=== PATIENT | male | born 1990 ===

== ENCOUNTER 2018-06-12 23:32 | Emergency (ER) | payer OTHER ==
[2018-06-12] MEDS ORDERED: Bacitracin 500 Units/gm Oint Foilpak UD ONE (23:45)
[2018-06-12 23:57] VITALS: RESP 16; O2SAT 99
[2018-06-13] MEDS ORDERED: Tdap Vaccine 0.5 ml Vial (10-64 yrs) IM ONE ×2 (00:04→00:09)
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
[2018-06-13] MEDS ORDERED: Bacitracin 500 Units/gm Oint Foilpak UD ONE ×3 (02:07→02:28)
[2018-06-13 02:36] VITALS: BP 126/70; PULSE 84; TEMP 98.6
== END 2018-06-13 02:36 | disposition home or self-care (01) ==
LOC: C.ER 23:32
DX: S61.214A Laceration without foreign body of right ring finger without damage to nail, initial encounter (principal); S50.311A Abrasion of right elbow, initial encounter; S90.511A Abrasion, right ankle, initial encounter; V13.4XXA Pedal cycle driver injured in collision with car, pick-up truck or van in traffic accident, initial encounter; Y92.410 Unspecified street and highway as the place of occurrence of the external cause; Z23 Encounter for immunization

== ENCOUNTER 2018-06-20 15:11 | Emergency (ER) | payer MEDICAID, OTHER ==
[2018-06-20 15:15] VITALS: BMI 26.6
[2018-06-20 15:17] VITALS: BP 143/83; PULSE 69; RESP 18; TEMP 98.2; O2SAT 99
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
[2018-06-20] MEDS ORDERED: Bacitracin 500 Units/gm Oint Foilpak UD ONE (15:47)
== END 2018-06-20 15:55 | disposition home or self-care (01) ==
LOC: C.ER 15:11
DX: Z48.00 Encounter for change or removal of nonsurgical wound dressing (principal)

== ENCOUNTER 2018-06-24 13:30 | Emergency (ER) | payer MEDICAID, OTHER ==
[2018-06-24 13:30] VITALS: BMI 26.6
[2018-06-24 13:40] VITALS: BP 137/90; PULSE 67; RESP 18; TEMP 97.7; O2SAT 99
[2018-06-24] MEDS ORDERED: Bacitracin 500 Units/gm Oint Foilpak UD TOP ONE (13:57)
[2018-06-24] MEDS ORDERED: Bacitracin 500 Units/gm Oint Foilpak UD ONE (14:00)
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
== END 2018-06-24 14:21 | disposition home or self-care (01) ==
LOC: C.ER 13:30
DX: Z48.00 Encounter for change or removal of nonsurgical wound dressing (principal)

== ENCOUNTER 2018-06-27 15:09 | Emergency (ER) | payer OTHER ==
[2018-06-27 15:33] VITALS: BMI 24.3
[2018-06-27 15:39] VITALS: BP 143/86; PULSE 79; RESP 18; TEMP 97.9; O2SAT 99
--- NOTE | 2018-06-27 15:56 | C.PDOC ---
History Of Present Illness 27 yo male come in for scheduled evaluation of Right 4th finger open wound after laceration was repaired herein ED 2 weeks ago. Pt still c/o mild pain over distal 4th phalanx that was since injury, but denies worsening of pain, fever, chills, wound discharge, deformity to injured finger, denies weakness, sensory or vascular deficist to injured finger. Ambulate to ED for evaluation, not in any apparent distress. Time Seen by Provider: 06/27/18 15:28 Chief Complaint (Nursing): Wound Check History Per: Patient Past Medical History Reviewed: Historical Data, Nursing Documentation, Vital Signs Vital Signs: Last Vital Signs Temp 97.9 F 06/27/18 15:37 Pulse 79 06/27/18 15:37 Resp 18 06/27/18 15:37 BP 143/86 06/27/18 15:37 Pulse Ox 99 06/27/18 16:01 - Medical History PMH: No Chronic Diseases Family History: States: Unknown Family Hx - Social History Hx Alcohol Use: Yes Hx Substance Use: Yes (marijuana) - Immunization History Hx Tetanus Toxoid Vaccination: Yes Hx Influenza Vaccination: No Hx Pneumococcal Vaccination: No Review Of Systems Except As Marked, All Systems Reviewed And Found Negative. Constitutional: Negative for: Fever, Chills Musculoskeletal: Positive for: Hand Pain Skin: Positive for: Lesions Neurological: Negative for: Weakness, Numbness Physical Exam - Physical Exam Appears: Well, Non-toxic, No Acute Distress Skin: Normal Color, Warm, No Rash Extremity: Normal ROM (Right 4th finger), Tenderness (mild over Right 4th distal phalanx, small open wound noted palmar aspect [id number] distal phalanx with scant yelelow base ( granulation tissue vs infection)), Capillary Refill ( lesst bowman 2sec to Right hand), No Deformity, Swelling (diffuse mild Right 4th distal pahalnx. No erythema, no proximal streaking.), Other Neurological/Psych: Oriented x3, Normal Speech, Normal Motor, Normal Sensation, Normal Reflexes ED Course And Treatment O2 Sat by Pulse Oximetry: 99 Progress Note: Right hand: 4th distal phalanx open wound cleaned thoroughly, Xeroform, sterile dressing applied. FAROM, no neurovasculardeficits, no proximal streaking. Pt advised on wound care. ref. to f/u with PMD or ED in 4- 5 days for re-eavl. return to ED if any worsening or new changes. Disposition Counseled Patient/Family Regarding: Diagnosis, Need For Followup, Rx Given - Disposition Referrals: [facility] [Outside] Disposition: HOME/ ROUTINE Disposition Time: 15:53 Condition: STABLE Additional Instructions: Follow up with PMD, ED in 4-5 days for re-evaluation. return if any worsening or new changes. Prescriptions: Doxycycline Hyclate [Doryx] 100 mg PO BID #14 cap Instructions: Wound Care (DC) Forms: [employer] (Cuban) Print Language: COMORAN - Clinical Impression Clinical Impression: Open wound
== END 2018-06-27 16:13 | disposition home or self-care (01) ==
LOC: C.ER 15:09
DX: S61.204A Unspecified open wound of right ring finger without damage to nail, initial encounter (principal); X58.XXXA Exposure to other specified factors, initial encounter

== ENCOUNTER 2018-07-15 14:11 | Emergency (ER) | payer MEDICAID, OTHER ==
[2018-07-15 14:11] VITALS: BMI 24.3
[2018-07-15 14:29] VITALS: RESP 18
--- NOTE | 2018-07-15 14:57 | C.PDOC ---
Time Seen by Provider: 07/15/18 14:31 Chief Complaint (Nursing): Finger,Hand,&Wrist Past Medical History Vital Signs: Last Vital Signs Temp 98.1 F 07/15/18 14:26 Pulse 78 07/15/18 14:26 Resp 18 07/15/18 14:26 BP 134/74 07/15/18 14:26 Pulse Ox 99 07/15/18 14:26 Family History: States: Unknown Family Hx - Social History Hx Alcohol Use: Yes Hx Substance Use: Yes (marijuana) - Immunization History Hx Tetanus Toxoid Vaccination: Yes Hx Influenza Vaccination: No Hx Pneumococcal Vaccination: No ED Course And Treatment O2 Sat by Pulse Oximetry: 99 Disposition - Disposition Forms: [facility] (Pakistani)
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
[2018-07-15] MEDS ORDERED: Bacitracin 500 Units/gm Oint Foilpak UD TOP ONE (15:18)
[2018-07-15] MEDS ORDERED: Bacitracin 500 Units/gm Oint Foilpak UD ONE (15:52)
[2018-07-15 16:03] VITALS: BP 116/68; PULSE 61; TEMP 98.4
[2018-07-15 21:36] VITALS: O2SAT 99
== END 2018-07-15 16:00 | disposition home or self-care (01) ==
LOC: C.ER 14:11
DX: S61.304D Unspecified open wound of right ring finger with damage to nail, subsequent encounter (principal); W18.30XD Fall on same level, unspecified, subsequent encounter